=== PATIENT | male | born 1970 | race Caucasian/White ===

== ENCOUNTER 2018-03-18 14:38 | Emergency (ER) | payer BC ==
[2018-03-18 14:42] VITALS: TEMP 97.8
[2018-03-18] MEDS ORDERED: ONDANSETRON 4 MG/2 ML VIAL IVP STA (14:52)
[2018-03-18] MEDS ORDERED: SODIUM CHLORIDE 0.9% 1,000 ML IV STA (14:52)
[2018-03-18] MEDS ORDERED: HYDROmorphone 1 MG/ML 1 ML SYRINGE IVP STA (14:52)
[2018-03-18] MEDS ORDERED: KETOROLAC 30 MG/ML 1 ML VIAL IVP STA (14:52)
--- NOTE | 2018-03-18 15:00 | ED ---
General Adult HPI - General Chief complaint: Back Pain/Injury Stated complaint: back pain/vomiting Time Seen by Provider: 03/18/18 14:40 Source: patient, family, RN notes reviewed Mode of arrival: wheelchair Limitations: no limitations - History of Present Illness Initial comments: This is a 47-year-old male with past medical history significant for Crohn's disease. Patient states she's been on Humira for quite a while and has been symptom-free. Patient states he woke up today with severe right sided mid back pain. Patient states it was so bad it made him vomit. Patient denies any radiation of the pain. Patient denies any pain worsening with movement. Patient states palpating the area does not seem to make it worse. Patient denies any recent heavy lifting. Patient denies any recent injury or trauma. Patient denies any fever or chills. Patient denies any dysuria or urinary frequency or hematuria - Related Data Home Medications Medication Instructions Recorded Confirmed Acetaminophen Tab [Tylenol Tab] 1,000 mg PO Q6HR 03/18/18 03/18/18 Adalimumab [Humira Pen] 40 mg SQ Q21D 03/18/18 03/18/18 Previous Rx's Medication Instructions Recorded Hydrocodone/Acetaminophen [[place] 1 each PO Q4HR PRN #14 tab 03/18/18 5-325] Ketorolac [Toradol] 10 mg PO Q6HR #15 tab 03/18/18 Tamsulosin [Flomax] 0.4 mg PO DAILY #7 cap 03/18/18 Allergies Allergy/AdvReac Type Severity Reaction Status Date / Time No Known Allergies Allergy Verified 03/18/18 15:29 Review of Systems ROS Statement: Those systems with pertinent positive or pertinent negative responses have been documented in the HPI. ROS Other: All systems not noted in ROS Statement are negative. Past Medical History Past Medical History: Osteoarthritis (OA) Additional Past Medical History / Comment(s): crohns History of Any Multi-Drug Resistant Organisms: None Reported Past Surgical History: Orthopedic Surgery Past Psychological History: No Psychological Hx Reported Smoking Status: Never smoker Past Alcohol Use History: Occasional Past Drug Use History: None Reported General Exam - General Exam Comments Initial Comments: GENERAL: Patient is well-developed and well-nourished. Patient is nontoxic and well- hydrated and is in moderate distress. ENT: Neck is soft and supple. No significant lymphadenopathy is noted. Oropharynx is clear. Moist mucous membranes. Neck has full range of motion without eliciting any pain. EYES: The sclera were anicteric and conjunctiva were pink and moist. Extraocular movements were intact and pupils were equal round and reactive to light. Eyelids were unremarkable. PULMONARY: Unlabored respirations. Good breath sounds bilaterally. No audible rales rhonchi or wheezing was noted. CARDIOVASCULAR: There is a regular rate and rhythm without any murmurs gallops or rubs. ABDOMEN: Soft and nontender with normal bowel sounds. No palpable organomegaly was noted. There is no palpable pulsatile mass. SKIN: Skin is clear with no lesions or rashes and otherwise unremarkable. NEUROLOGIC: Patient is alert and oriented x3. Cranial nerves II through XII are grossly intact. Motor and sensory are also intact. Normal speech, volume and content. Symmetrical smile. MUSCULOSKELETAL: Normal extremities with adequate strength and full range of motion. No lower extremity swelling or edema. No calf tenderness. No reproducible back pain. LYMPHATICS: No significant lymphadenopathy is noted PSYCHIATRIC: Normal psychiatric evaluation. Normal interpersonal interactions appears functionally intact in deals appropriately with others. No signs of depression. No signs of anxiety. Limitations: no limitations Course Vital Signs 03/18/18 03/18/18 14:40 16:35 Temperature 97.8 F Pulse Rate 50 L 71 Respiratory 20 15 Rate Blood Pressure 139/92 112/59 O2 Sat by Pulse 99 98 Oximetry Medical Decision Making - Medical Decision Making Computed tomography scan shows a 3 mm distal ureter stone. Patient received Dilaudid and Zofran and Toradol in the emergency department was feeling considerably better. - Lab Data Result diagrams: 03/18/18 15:00 03/18/18 15:00 Lab Results 03/18/18 03/18/18 03/18/18 Range/Units 15:00 15:00 15:45 WBC 7.7 (3.8-10.6) k/uL RBC 5.31 (4.30-5.90) m/uL Hgb 15.6 (13.0-17.5) gm/dL Hct 48.1 (39.0-53.0) % MCV 90.5 (80.0-100.0) fL MCH 29.3 (25.0-35.0) pg MCHC 32.4 (31.0-37.0) g/dL RDW 12.5 (11.5-15.5) % Plt Count 295 (150-450) k/uL Neutrophils % 62 % Lymphocytes % 28 % Monocytes % 5 % Eosinophils % 2 % Basophils % 0 % Neutrophils # 4.8 (1.3-7.7) k/uL Lymphocytes # 2.1 (1.0-4.8) k/uL Monocytes # 0.4 (0-1.0) k/uL Eosinophils # 0.1 (0-0.7) k/uL Basophils # 0.0 (0-0.2) k/uL Sodium 140 (137-145) mmol/L Potassium 4.2 (3.5-5.1) mmol/L Chloride 104 (98-107) mmol/L Carbon Dioxide 23 (22-30) mmol/L Anion Gap 13 mmol/L BUN 15 (9-20) mg/dL Creatinine 1.03 (0.66-1.25) mg/dL Est GFR (CKD-EPI)AfAm >90 (>60 ml/min/1.73 sqM) Est GFR (CKD-EPI)NonAf 87 (>60 ml/min/1.73 sqM) Glucose 118 H (74-99) mg/dL Calcium 9.9 (8.4-10.2) mg/dL Total Bilirubin 0.8 (0.2-1.3) mg/dL AST 21 (17-59) U/L ALT 21 (21-72) U/L Alkaline Phosphatase 94 (38-126) U/L Total Protein 7.9 (6.3-8.2) g/dL Albumin 4.3 (3.5-5.0) g/dL Amylase 87 (30-110) U/L Lipase 103 (23-300) U/L Urine Color Yellow Urine Appearance Clear (Clear) Urine pH 7.0 (5.0-8.0) Ur Specific [place] 1.019 (1.001-1.035) Urine Protein Trace H (Negative) Urine Glucose (UA) Negative (Negative) Urine Ketones 2+ H (Negative) Urine Blood Moderate H (Negative) Urine Nitrite Negative (Negative) Urine Bilirubin Negative (Negative) Urine Urobilinogen <2.0 (<2.0) mg/dL Ur Leukocyte Esterase Negative (Negative) Urine RBC 45 H (0-5) /hpf Urine WBC 2 (0-5) /hpf Hyaline Casts 4 H (0-2) /lpf Urine Mucus Few H (None) /hpf Disposition Clinical Impression: Kidney stone Disposition: HOME SELF-CARE Instructions: Kidney Stones (ED) Prescriptions: Hydrocodone/Acetaminophen [[place] 5-325] 1 each PO Q4HR PRN #14 tab PRN Reason: Pain Ketorolac [Toradol] 10 mg PO Q6HR #15 tab Tamsulosin [Flomax] 0.4 mg PO DAILY #7 cap Is patient prescribed a controlled substance at d/c from ED?: Yes When asked, does pt state using other controlled substances?: No If prescribed controlled substance>3 days was MAPS reviewed?: Prescribed <3 Days If opioid is for acute pain is fill amount 7 days or less?: Yes If Rx opioid, was Start Talking consent form obtained?: Yes Referrals: Philipp Nunn MD [STAFF PHYSICIAN] - 1-2 days Time of Disposition: 17:21
[2018-03-18 15:12] LABS: Basophils % (A) 0 %; Eosinophils # (A) 0.1 k/uL (0-0.7); Eosinophils % (A) 2 %; HCT 48.1 % (39.0-53.0); HGB 15.6 gm/dL (13.0-17.5); Lymphocytes # (A) 2.1 k/uL (1.0-4.8); Lymphocytes % (A) 28 %; MCH 29.3 pg (25.0-35.0); MCHC 32.4 g/dL (31.0-37.0); MCV 90.5 fL (80.0-100.0); Mean Platelet Volume 6.8; Monocytes # (A) 0.4 k/uL (0-1.0); Monocytes % (A) 5 %; Neutrophils # (A) 4.8 k/uL (1.3-7.7); Neutrophils % (A) 62 %; Platelet Count 295 k/uL (150-450); RBC 5.31 m/uL (4.30-5.90); RDW 12.5 % (11.5-15.5); WBC 7.7 k/uL (3.8-10.6)
[2018-03-18 15:19] LABS: ALT 21 U/L (21-72); AST 21 U/L (17-59); Albumin 4.3 g/dL (3.5-5.0); Alkaline Phosphatase 94 U/L (38-126); Amylase 87 U/L (30-110); Anion Gap 13 mmol/L; Blood Urea Nitrogen 15 mg/dL (9-20); Calcium 9.9 mg/dL (8.4-10.2); Carbon Dioxide 23 mmol/L (22-30); Chloride 104 mmol/L (98-107); Glucose 118 mg/dL (74-99); Lipase 103 U/L (23-300); Potassium 4.2 mmol/L (3.5-5.1); Sodium 140 mmol/L (137-145); Total Bilirubin 0.8 mg/dL (0.2-1.3); Total Protein 7.9 g/dL (6.3-8.2)
--- NOTE | 2018-03-18 15:31 | XR ---
EXAMINATION TYPE: XR KUB DATE OF EXAM: 03/18/2018 CLINICAL DATA: 47-year-old male with right-sided lower back pain, abdominal pain, and vomiting, PHH COMPARISON: None FINDINGS: Lung bases are clear. No evidence for free intraperitoneal air. No differential air-fluid levels are identified. However, prominent air filled central small bowel lo ops with loops measuring up to 2.8 cm. Mild to moderate stool burden with some air extending distally to the rectum. No suspicious calcifications identified. IMPRESSION: 1. Prominent air filled central small bowel loops measuring up to 2.8 cm. Overall nonobstructive troy l gas pattern at this time. Consider enteritis or generalized ileus. Follow-up may be helpful. 2. No free air
[2018-03-18 15:55] LABS: Appearance,Urine Clear (Clear); Bilirubin,Urine Negative (Negative); Blood,Urine Moderate (Negative); Color,Urine Yellow; Glucose,Urine (UA) Negative (Negative); Hyaline Casts,Urine 4 /lpf (0-2); Ketones,Urine 2+ (Negative); Leukocyte Esterase,Urine Negative (Negative); Mucus,Urine Few /hpf; Nitrite,Urine Negative (Negative); Protein,Urine Trace (Negative); RBC,Urine 45 /hpf (0-5); Specific Gravity,Urine 1.019 (1.001-1.035); Urobilinogen,Urine <2.0 mg/dL (<2.0); WBC,Urine 2 /hpf (0-5)
--- NOTE | 2018-03-18 16:36 | CT ---
EXAMINATION TYPE: CT abdomen pelvis wo con DATE OF EXAM: 03/18/2018 COMPARISON: 03/19/2011 HISTORY: 47-year-old male with Lower back pain and vomiting CT DLP: 300.3 mGycm. Automated exposure control for dose reduction was used. TECHNIQUE: Contiguous axial scanning of the abdomen and pelvis without IV contrast. Coronal and sagit ashok reconstructions performed. FINDINGS: Heart normal size without pericardial effusion. Mild dependent atelectasis without pleural effusion. Noncontrast appearance of the liver, gallbladder, left kidney, spleen, pancreas, and adrenal glands s how no gross abnormality. Nonobstructive 2 mm right mid to lower pole renal calculus. There is mild right-sided pelvocaliectasi s with a 3 mm calculus in the distal right ureter just before the UVJ with mild asymmetric ureteric d ilatation. No mesenteric or retroperitoneal lymphadenopathy. Normal appendix. Mild stool burden. No pericolonic inflammatory change. Bladder nondistended. Central prostatic calcifications. No abnormal fluid collection in the pelvis or pelvic lymphadenopathy. Bones: No osseous destructive process. IMPRESSION: 1. 3 mm calculus in the distal right ureter with mild obstructive uropathy. 2. An additional 2 mm nonobstructive right renal calculus.
[2018-03-18 16:37] VITALS: BP 112/59; PULSE 71; RESP 15
== END 2018-03-18 17:35 | disposition home or self-care (01) ==
LOC: EC 14:38
DX: N20.2 Calculus of kidney with calculus of ureter (principal); M19.90 Unspecified osteoarthritis, unspecified site; Z87.19 Personal history of other diseases of the digestive system; Z79.899 Other long term (current) drug therapy
CPT/HCPCS: 36415; 80053; 82150; 83690; 85025; 81001; 74018; 74176; 99284; 96374; 96375 ×2; 96361; J2405; J1885; J1170

== ENCOUNTER → 2018-03-23 | Outpatient (CLI) | payer BC ==
[2018-03-23 10:09] LABS: HCT 45.9 % (39.0-53.0); HGB 15.2 gm/dL (13.0-17.5); MCH 29.2 pg (25.0-35.0); MCHC 33.1 g/dL (31.0-37.0); MCV 88.4 fL (80.0-100.0); Mean Platelet Volume 6.8; Platelet Count 251 k/uL (150-450); RDW 12.3 % (11.5-15.5); WBC 9.7 k/uL (3.8-10.6)
[2018-03-23 10:16] LABS: Appearance,Urine Clear (Clear); Bilirubin,Urine Negative (Negative); Blood,Urine Negative (Negative); Color,Urine Light Yellow; Glucose,Urine (UA) Negative (Negative); Ketones,Urine Negative (Negative); Leukocyte Esterase,Urine Negative (Negative); Nitrite,Urine Negative (Negative); Protein,Urine Negative (Negative); Specific Gravity,Urine 1.015 (1.001-1.035); Urobilinogen,Urine <2.0 mg/dL (<2.0)
[2018-03-23 10:21] LABS: Calcium 9.9 mg/dL (8.4-10.2); Potassium 5.8 mmol/L (3.5-5.1)
== END | disposition home or self-care (01) ==
LOC: LABPAT 09:30
PROVIDERS: ATTEND Urology
DX: Z01.812 Encounter for preprocedural laboratory examination (principal); N20.1 Calculus of ureter; R31.0 Gross hematuria; Z79.899 Other long term (current) drug therapy
CPT/HCPCS: 36415; 80048; 81003; 85027

== ENCOUNTER 2018-03-24 11:16 | Day surgery (SDC) | payer BC ==
[2018-03-23 09:51] VITALS: BMI 25.0
--- NOTE | 2018-03-23 19:35 | P.GSHP ---
History of Present Illness H&P Date: 03/23/18 47 yo male with a 3 mm distal right ureteral stone with persistent ureteral colic who comes for a right ureteroscopy with laser lithotripsy and possible stent The alternatives, risks and complications have been discussed. - Constitutional Constitutional: Denies chills, Denies fever - EENT Eyes: denies blurred vision, denies pain Ears, nose, mouth and throat: Denies headache, Denies sore throat - Cardiovascular Cardiovascular: Denies chest pain, Denies shortness of breath - Respiratory Respiratory: Denies cough, Denies 7 - Gastrointestinal Gastrointestinal: Denies abdominal pain, Denies diarrhea, Denies nausea, Denies vomiting - Genitourinary (Female) Genitourinary: Denies dysuria, Denies hematuria - Genitourinary (Male) Genitourinary: Denies dysuria, Denies hematuria - Musculoskeletal Musculoskeletal: Denies myalgias - Integumentary Integumentary: Denies pruritus, Denies rash - Neurological Neurological: Denies numbness, Denies weakness - Psychiatric Psychiatric: Denies anxiety, Denies depression - Endocrine Endocrine: Denies fatigue, Denies weight change Past Medical History Past Medical History: Osteoarthritis (OA), Rheumatoid Arthritis (RA) Additional Past Medical History / Comment(s): Crohns; Kidney stones History of Any Multi-Drug Resistant Organisms: None Reported Past Surgical History: Orthopedic Surgery Additional Past Surgical History / Comment(s): Shoulder; wrist ; bowel surgery for abscess & fistulas Past Anesthesia/Blood Transfusion Reactions: No Reported Reaction Smoking Status: Never smoker - Past Family History Father Family Medical History: Cancer Additional Family Medical History / Comment(s): Prostate CA Mother Family Medical History: Cancer Additional Family Medical History / Comment(s): Skin CA Medications and Allergies Home Medications Medication Instructions Recorded Confirmed Type Acetaminophen Tab [Tylenol Tab] 1,000 mg PO Q6HR 03/18/18 03/23/18 History Adalimumab [Humira Pen] 40 mg SQ Q21D 03/18/18 03/23/18 History Hydrocodone/Acetaminophen [[place] 1 each PO Q4HR PRN #14 tab 03/18/18 03/23/18 Rx 5-325] Tamsulosin [Flomax] 0.4 mg PO DAILY #7 cap 03/18/18 03/23/18 Rx Ibuprofen [Motrin] 800 mg PO BID PRN 03/23/18 03/23/18 History Allergies Allergy/AdvReac Type Severity Reaction Status Date / Time No Known Allergies Allergy Verified 03/23/18 09:43 Surgical - Exam - General well developed, well nourished, moderate distress - Eyes PERRL - ENT no hearing loss - Neck no masses, trachea midline - Respiratory normal expansion, normal respiratory effort - Cardiovascular Rhythm: regular - Abdomen Abdomen: soft, non tender - Genitourinary normal penis with no external lesions, testicles present - Neurologic normal coordination, normal sensation - Musculoskeletal normal gait, normal posture - Psychiatric oriented to time, oriented to person, oriented to place, speech is normal, memory intact Results - Imaging CT scan - abdomen: report reviewed, image reviewed CT scan - pelvis: report reviewed, image reviewed Assessment and Plan Assessment: Impression: Painful right ureteral stone Plan: Right ureteroscopy with laser lithotripsy and possible stent placement
[~2018-03-24 11:16] MED LIST: DEXAMETHASONE SOD PHOSPHATE 10 MG/ML 1 ML VIAL IV ONE; HYDROmorphone 0.5 MG/0.5 ML SYRINGE IVP PRN; LACTATED RINGERS 1,000 ML IV SCH; LIDOCAINE 1% 20 ML VIAL (10MG/ML) FOR IV START INTRADERMA PRN; MIDAZOLAM 2 MG/2 ML VIAL IV PRN; ONDANSETRON 4 MG/2 ML VIAL IVP ONE; SCOPOLAMINE 1.5MG/72HR PATCH TRANSDERM ONE; ceFAZolin 1,000 MG in DEXTROSE/WATER 1 50ML.BAG IVPB ONE
--- NOTE | 2018-03-24 11:40 | XR ---
EXAMINATION TYPE: XR KUB DATE OF EXAM: 03/24/2018 11:30 AM CLINICAL HISTORY: Presurgical study for right-sided kidney stone TECHNIQUE: Single supine KUB image of the abdomen is obtained. COMPARISON: Abdominal x-ray and CT abdomen and pelvis from 6 days ago. FINDINGS: The single small calculi in distal right ureter and mid pole level right kidney both measur ing 2 to [address] are not clearly identified on plain films today and March 18. Overall nonobstructive bowel gas pattern. Osseous structures are intact. IMPRESSION: As above.
[2018-03-24 11:49] VITALS: RESP 16
[2018-03-24] MEDS ORDERED: LIDOCAINE 1% 20 ML VIAL (10MG/ML) FOR IV START INTRADERMA ONE (12:02)
[2018-03-24] MEDS ORDERED: ePHEDrine SULFATE/0.9% NACL/PF 50 MG/5 ML SYRINGE IV ONE (12:37)
[2018-03-24] MEDS ORDERED: MIDAZOLAM 2 MG/2 ML VIAL ONE (12:37)
[2018-03-24] MEDS ORDERED: fentaNYL (PF) 50 MCG/ML 2 ML AMP ONE (12:37)
[2018-03-24] MEDS ORDERED: PROPOFOL 10 MG/ML 20 ML VIAL IV ONE (12:37)
[2018-03-24] MEDS ORDERED: LIDOCAINE 1% INJ 10MG/ML (20 ML MDV) ONE (12:37)
[2018-03-24] MEDS ORDERED: IOHEXOL 350 MG/ML 50 ML in EMPTY BAG 1 BAG IRRIGATION ONE (13:05)
--- NOTE | 2018-03-24 13:21 | P.OP ---
Date of Procedure: 03/24/18 Preoperative Diagnosis: Right ureteral calculus Postoperative Diagnosis: Right ureteral calculus Procedure(s) Performed: Cystoscopy, right retrograde pyelogram, right ureteroscopy with stone basket Anesthesia: OG Surgeon: Darrell Lynn Estimated Blood Loss (ml): 0 Pathology: other (Stone) Condition: stable Disposition: PACU Indications for Procedure: The patient is 47. For several days he has been trying to pass a 3 mm right ureteral stone. It is causing persistent colic and he cannot function or work. He wishes it removed. Description of Procedure: The patient is brought to the operating suite. He is given a general anesthesia on the operating table. He's placed lithotomy position with a sterile prep and drape. Cystoscopy of the Foroblique lens and 22-[place] sheath is performed. The anterior urethra is normal. The prostatic urethra was not obstructing. The ureteral orifices are normal. The bladder mucosa was unremarkable. The right ureteral orifice is quite small. Within a cone-tipped catheter is dilated and a retrograde pyelogram was performed identifying a 3 mm stone is ureter enters the bladder. I then pass a semirigid scope up to the stone. The scope dilates the edematous area where the stone is lodged. With a 1.9-Honduran stone basket the stone was grasped and removed. I reinspected the ureter and there is not enough edema to leave a stent. The bladder strain the cystoscope was removed the patient's awakened and returned recovery room good condition. He'll be discharged home upon recovery and follow in the office in one week.
[2018-03-24 13:30] VITALS: TEMP 97.4
[2018-03-24] MEDS ORDERED: HYDROcodone/APAP 5-325MG 1 EACH TAB PO ONE (14:28)
[2018-03-24 14:50] VITALS: BP 132/85; PULSE 80
--- NOTE | 2018-03-24 15:47 | FL ---
Fluoroscopy HISTORY: Ureter stone 27 seconds fluoroscopy time supplied to the referring clinician. 1 intraoperative C-arm images docum ent the procedure. See dictated report from urology.
== END 2018-03-24 15:18 | disposition home or self-care (01) ==
LOC: OR 11:16
PROVIDERS: ATTEND Urology
DX: N20.1 Calculus of ureter (principal); M19.90 Unspecified osteoarthritis, unspecified site; M06.9 Rheumatoid arthritis, unspecified; K50.90 Crohn's disease, unspecified, without complications; Z87.442 Personal history of urinary calculi; Z79.899 Other long term (current) drug therapy
CPT/HCPCS: 93005; 84132; 74420; 74018; 52352; C1758; C1769; J2250; J1100; J2405; J2001; J3010; J0690; J2704; Q9967

== ENCOUNTER → 2018-07-20 | Outpatient (CLI) | payer BC ==
[2018-07-20 07:43] LABS: Ionized Calcium 5.2 mg/dL (4.5-5.3)
[2018-07-20 11:15] LABS: Albumin 4.4 g/dL (3.80-4.90); Albumin/Globulin Ratio 1.76 (1.20-2.10); Calcium 9.5 mg/dL (8.7-10.3); Globulin 2.5 g/dL (1.6-3.3); Potassium 4.5 mmol/L (3.5-5.5); Total Bilirubin 0.3 mg/dL (0.3-1.2); Total Protein 6.9 g/dL (6.2-8.2)
== END | disposition home or self-care (01) ==
LOC: LABWHC1 06:54
PROVIDERS: ATTEND Internal Medicine
DX: N20.0 Calculus of kidney (principal)
CPT/HCPCS: 36415; 80053; 82330

== ENCOUNTER → 2020-02-23 | Outpatient (CLI) | payer BC ==
[2020-02-23 10:03] LABS: Basophils % (A) 1 %; Eosinophils # (A) 0.2 k/uL (0-0.7); Eosinophils % (A) 2 %; HCT 53.4 % (39.0-53.0); HGB 17.6 gm/dL (13.0-17.5); Lymphocytes # (A) 2.6 k/uL (1.0-4.8); Lymphocytes % (A) 39 %; MCH 29.9 pg (25.0-35.0); MCV 90.5 fL (80.0-100.0); Mean Platelet Volume 7.2; Monocytes # (A) 0.5 k/uL (0-1.0); Monocytes % (A) 8 %; Neutrophils # (A) 3.2 k/uL (1.3-7.7); Neutrophils % (A) 48 %; Platelet Count 289 k/uL (150-450); RBC 5.89 m/uL (4.30-5.90); RDW 12.4 % (11.5-15.5); WBC 6.7 k/uL (3.8-10.6)
[2020-02-23 16:49] LABS: Erythrocyte Sedimentation Rate 4 mm/Hr (0-15)
[2020-02-23 16:56] LABS: Albumin 4.5 g/dL (3.80-4.90); Albumin/Globulin Ratio 1.36 (1.60-3.17); Anion Gap 11.7 mmol/L (4.00-12.00); Carbon Dioxide 23.3 mmol/L (21.6-31.8); Chol/HDL Ratio 4.54; Globulin 3.3 g/dL (1.6-3.3); LDL Cholesterol,Calculated 139.4 mg/dL (0.0-131.0); Potassium 4.6 mmol/L (3.5-5.5); Total Bilirubin 0.7 mg/dL (0.2-1.2); Total Protein 7.8 g/dL (6.2-8.2); VLDL Calculation 37.6 mg/dL (5.00-40.00)
[2020-02-23 17:05] LABS: T4, Free (Free Thyroxine) 1.1 ng/dL (0.80-1.80)
== END | disposition home or self-care (01) ==
LOC: LABWHC1 08:49
PROVIDERS: ATTEND Internal Medicine
DX: Z00.00 Encounter for general adult medical examination without abnormal findings (principal); K50.90 Crohn's disease, unspecified, without complications
CPT/HCPCS: 36415; 80053; 80061; 84439; 84443; 85025; 85652

== ENCOUNTER → 2021-03-07 | Outpatient (CLI) | payer BC ==
--- NOTE | 2021-03-07 10:01 | XR ---
EXAMINATION TYPE: XR lumbosacral spine min 4V DATE OF EXAM: 03/07/2021 CLINICAL HISTORY: Low back pain TECHNIQUE: Frontal, lateral, and oblique images of the lumbar spine are obtained. COMPARISON: CT abdomen and pelvis March 18, 2018 FINDINGS: There are 5 lumbar type vertebral bodies redemonstrated. The lumbar spine shows stable an d satisfactory alignment without evidence of acute fracture or dislocation. Vertebral body heights an d disk space heights remain within normal limits. Some facet arthropathy lower lumbar spine is redemo nstrated. Mild multilevel anterior spurring is redemonstrated. The oblique images appear within norm al limits. Rounded 7 mm density between right 11th and 12th ribs could reflect new gallstone. IMPRESSION: As above.
--- NOTE | 2021-03-07 10:03 | XR ---
EXAMINATION TYPE: XR sacroiliac joint comp BILAT DATE OF EXAM: 03/07/2021 COMPARISON: CT abdomen and pelvis March 18, 2018 HISTORY: Pain and sacroiliitis. TECHNIQUE: 2 views of the bilateral sacroiliac joints obtained on 3 images. FINDINGS: Sacroiliac joints remain symmetric and within normal limits. No suspicious asymmetric narro wing, spurring, or sclerosis is identified bilaterally. Overlying soft tissue is unremarkable. IMPRESSION: As above. Unremarkable study.
== END | disposition home or self-care (01) ==
LOC: RADXRMAIN 09:01
PROVIDERS: ATTEND Pediatrics
DX: M47.816 Spondylosis without myelopathy or radiculopathy, lumbar region (principal); M53.3 Sacrococcygeal disorders, not elsewhere classified
CPT/HCPCS: 72110; 72202

== ENCOUNTER 2024-04-29 05:55 | Emergency (ER) | payer BC ==
[2024-04-29 06:10] VITALS: RESP 20; TEMP 98.1
--- NOTE | 2024-04-29 06:26 | ED ---
Back Pain HPI - General Chief Complaint: Back Pain/Injury Stated Complaint: Kidney Stone Time Seen by Provider: 04/29/24 06:24 Source: patient, family, RN notes reviewed Limitations: no limitations - History of Present Illness Initial Comments: 53-year-old male presenting to the ER with a chief complaint of left flank pain. Patient reports a history of kidney stones and states this pain feels similar. He states around 10 or 11 last night he started to experience a dull left flank pain. Pain does not radiate. He states around 3 AM pain progressed to be severe in nature. Admits to dry heaves. He took [id number] ibuprofen and Aleve with some relief. He reports a discomfort with urination but denies any dysuria or hematuria. Denies any fevers or chills. Denies any constipation/diarrhea. No other complaints. - Related Data Home Medications Medication Instructions Recorded Confirmed Acetaminophen Tab [Tylenol Tab] 1,000 mg PO Q6HR 03/18/18 03/24/18 Adalimumab [Humira Pen] 40 mg SQ Q21D 03/18/18 03/24/18 Ibuprofen [Motrin] 800 mg PO BID PRN 03/23/18 03/24/18 Previous Rx's Medication Instructions Recorded Hydrocodone/Acetaminophen [[place] 1 each PO Q4HR PRN #14 tab 03/18/18 5-325] Tamsulosin [Flomax] 0.4 mg PO DAILY #7 cap 03/18/18 Acetaminophen-Codeine 300-30mg 1 tab PO Q4H PRN #10 tablet 04/29/24 [Tylenol #3] Ondansetron Odt [Zofran Odt] 4 mg PO Q8HR PRN #10 tab 04/29/24 Tamsulosin [Flomax] 0.4 mg PO DAILY #7 cap 04/29/24 Allergies Allergy/AdvReac Type Severity Reaction Status Date / Time No Known Allergies Allergy Verified 03/24/18 11:49 Review of Systems ROS Statement: Those systems with pertinent positive or pertinent negative responses have been documented in the HPI. ROS Other: All systems not noted in ROS Statement are negative. Past Medical History Past Medical History: Osteoarthritis (OA) Additional Past Medical History / Comment(s): crohns History of Any Multi-Drug Resistant Organisms: None Reported Past Surgical History: Orthopedic Surgery Past Psychological History: No Psychological Hx Reported Past Alcohol Use History: Occasional Past Drug Use History: None Reported General Exam Limitations: no limitations General appearance: alert, in no apparent distress Respiratory exam: Present: normal lung sounds bilaterally. Absent: respiratory distress, wheezes, rales, rhonchi, stridor Cardiovascular Exam: Present: regular rate, normal rhythm, normal heart sounds. Absent: systolic murmur, diastolic murmur, rubs, gallop, clicks GI/Abdominal exam: Present: soft, normal bowel sounds. Absent: distended, t enderness, guarding, rebound, rigid Extremities exam: Present: normal inspection, full ROM, normal capillary refill. Absent: tenderness, pedal edema, joint swelling, calf tenderness Back exam: Present: normal inspection Neurological exam: Present: alert, oriented X3, CN II-XII intact Skin exam: Present: warm, dry, intact, normal color. Absent: rash Course Vital Signs 04/29/24 04/29/24 04/29/24 06:07 07:12 08:48 Temperature 98.1 F Pulse Rate 73 71 72 Respiratory 20 20 20 Rate Blood Pressure 155/100 134/90 119/96 O2 Sat by Pulse 99 98 97 Oximetry 04/29/24 09:54 Temperature Pulse Rate 77 Respiratory 20 Rate Blood Pressure 130/68 O2 Sat by Pulse 98 Oximetry Medical Decision Making - Medical Decision Making Was pt. sent in by a medical professional or institution ([facility], [employer], urgent care, hospital, or [facility]...) When possible be specific @ -No Did you speak to anyone other than the patient for history (EMS, parent, family, police, friend...)? What history was obtained from this source @ -, at bedside, aiding in HPI and past medical history. Did you review nursing and triage notes (agree or disagree)? Why? @ -I reviewed and agree with nursing and triage notes Were old charts reviewed (outside hosp., previous admission, EMS record, old EKG, old radiological studies, urgent care reports/EKG's, [facility] records)? Report findings @ -No old charts were reviewed Differential Diagnosis (chest pain, altered mental status, abdominal pain women, abdominal pain men, vaginal bleeding, weakness, fever, dyspnea, syncope, h eadache, dizziness, GI bleed, back pain, seizure, CVA, palpatations, mental health, musculoskeletal)? @ -Differential Back Pain:Strain, zoster, cauda equina syndrome, epidural abscess, vertebral osteomyelitis, discitis, fracture, subluxation, disc herniation, DJD, spinal stenosis, dissection, AAA, pancreatitis, peptic ulcer disease, pyelonephritis, kidney stone, this is not meant to be an all-inclusive list. EKG interpreted by me (3pts min.). @ -None done X-rays interpreted by me (1pt min.). @ -[None done CT interpreted by me (1pt min.). @ -CT abdomen pelvis showing a 2 mm distal left ureteral calculus causing mild left-sided hydronephrosis. Calculus approximately 2 cm from the level of the left UVJ. U/S interpreted by me (1pt. min.). @ -None done What testing was considered but not performed or refused? (CT, X-rays, U/S, labs)? Why? @ -None What meds were considered but not given or refused? Why? @ -None Did you discuss the management of the patient with other professionals ( professionals i.e. , PA, [employer]ER, lab, RT, psych nurse, psychiatric social worker, information technology security analyst, teacher, bomb squad officer, employment evaluator/case manager)? Give summary @ -No Was smoking cessation discussed for >3mins.? @ -No Was critical care preformed (if so, how long)? @ -No Were there social determinants of health that impacted care today? How? (Homelessness, low income, unemployed, alcoholism, drug addiction, transportation, low edu. Level, literacy, decrease access to med. care, [facility], rehab)? @ -No Was there de-escalation of care discussed even if they declined (Discuss DNR or withdrawal of care, Hospice)? DNR status @ -No What co-morbidities impacted this encounter? (DM, HTN, Smoking, COPD, CAD, Cancer, CVA, ARF, Chemo, Hep., AIDS, mental health diagnosis, sleep apnea, morbid obesity)? @ -None Was patient admitted / discharged? Hospital course, mention meds given and route, prescriptions, significant lab abnormalities, going to OR and other pertinent info. @ -Discharge. 53-year-old male presenting to the ER with a chief complaint of left flank pain. History and physical exam completed. Patient is hypertensive upon arrival this is believed to be due from pain. Vitals are otherwise stable. Patient in no signs of acute distress but does appear uncomfortable on exam. No left CVA tenderness. No focal abdominal tenderness with normal bowel sounds no rebound or guarding. Laboratory studies showing a WBC of 14.1 with a left shift, likely reactive from vomiting. CMP unremarkable. Urinalysis hemorrhagic with moderate blood and 36 RBCs which is likely related to calculus. CT abdomen pelvis showing a 2 mm distal left ureteral calculus resulting in mild left sided hydronephrosis. Calculus approximately 2 cm from the level of the UVJ. Patient received symptomatic control in the ER, with improvement. Upon reevaluation, patient resting comfortably no signs of acute distress. Results discussed with patient, all questions answered. Patient stable for discharge at this time. Flomax, Zofran, Tylenol 3 prescribed. Advised patient to also take burb-pea-[id number] ibuprofen for pain control. Patient discharged with a urine strainer. I advised close follow-up with urology, referral given. Strict return parameters discussed. Patient discharged in stable condition with follow-up to PCP and urology. Patient verbally expressed understanding and agreement with care plan. Case discussed with ED attending, Dr. Meraz. Undiagnosed new problem with uncertain prognosis? @ -No Drug Therapy requiring intensive monitoring for toxicity (Heparin, Nitro, Insulin, Cardizem)? @ -No Were any procedures done? @ -No Diagnosis/symptom? @ -Hydronephrosis caused by obstructing calculus Acute, or Chronic, or Acute on Chronic? @ -Acute Uncomplicated (without systemic symptoms) or Complicated (systemic symptoms)? @ -Uncomplicated Side effects of treatment? @ -No Exacerbation, Progression, or Severe Exacerbation? @ -No Poses a threat to life or bodily function? How? (Chest pain, [place], [place], pneumonia, PE, COPD, DKA, ARF, appy, cholecystitis, CVA, Diverticulitis, Homicidal, Suicidal, threat to staff... and all critical care pts) @ -No - Lab Data Result diagrams: 04/29/24 06:42 04/29/24 08:16 Lab Results 04/29/24 04/29/24 04/29/24 Range/Units 06:23 06:42 06:42 WBC 14.1 H (3.8-10.6) k/uL RBC 5.49 (4.30-5.90) m/uL Hgb 16.4 (13.0-17.5) gm/dL Hct 50.5 (39.0-53.0) % MCV 92.0 (80.0-100.0) fL MCH 29.9 (25.0-35.0) pg MCHC 32.5 (31.0-37.0) g/dL RDW 12.3 (11.5-15.5) % Plt Count 268 (150-450) k/uL MPV 7.8 Neutrophils % 77 % Lymphocytes % 17 % Monocytes % 4 % Eosinophils % 1 % Basophils % 0 % Neutrophils # 10.8 H (1.3-7.7) k/uL Lymphocytes # 2.4 (1.0-4.8) k/uL Monocytes # 0.5 (0-1.0) k/uL Eosinophils # 0.1 (0-0.7) k/uL Basophils # 0.1 (0-0.2) k/uL Sodium (137-145) mmol/L Potassium (3.5-5.1) mmol/L Chloride (98-107) mmol/L Carbon Dioxide (22-30) mmol/L Anion Gap mmol/L BUN (9-20) mg/dL Creatinine (0.66-1.25) mg/dL Est GFR (CKD-EPI)AfAm (>60 ml/min/1.73 sqM) Est GFR (CKD-EPI)NonAf (>60 ml/min/1.73 sqM) Glucose (74-99) mg/dL Plasma Lactic Acid Mono 1.7 (0.7-2.0) mmol/L Calcium (8.4-10.2) mg/dL Total Bilirubin (0.2-1.3) mg/dL AST (17-59) U/L ALT (4-49) U/L Alkaline Phosphatase (38-126) U/L Total Protein (6.3-8.2) g/dL Albumin (3.5-5.0) g/dL Urine Color Yellow Urine Appearance Clear (Clear) Urine pH 5.5 (5.0-8.0) Ur Specific [place] 1.031 (1.001-1.035) Urine Protein Trace H (Negative) Urine Glucose (UA) Negative (Negative) Urine Ketones Negative (Negative) Urine Blood Moderate H (Negative) Urine Nitrite Negative (Negative) Urine Bilirubin Negative (Negative) Urine Urobilinogen <2.0 (<2.0) mg/dL Ur Leukocyte Esterase Negative (Negative) Urine RBC 36 H (0-5) /hpf Urine WBC <1 (0-5) /hpf Ur Squamous Epith Cells <1 (0-4) /hpf Urine Mucus Moderate H (None) /hpf 04/29/24 Range/Units 08:16 WBC (3.8-10.6) k/uL RBC (4.30-5.90) m/uL Hgb (13.0-17.5) gm/dL Hct (39.0-53.0) % MCV (80.0-100.0) fL MCH (25.0-35.0) pg MCHC (31.0-37.0) g/dL RDW (11.5-15.5) % Plt Count (150-450) k/uL MPV Neutrophils % % Lymphocytes % % Monocytes % % Eosinophils % % Basophils % % Neutrophils # (1.3-7.7) k/uL Lymphocytes # (1.0-4.8) k/uL Monocytes # (0-1.0) k/uL Eosinophils # (0-0.7) k/uL Basophils # (0-0.2) k/uL Sodium 141 (137-145) mmol/L Potassium 4.5 (3.5-5.1) mmol/L Chloride 107 (98-107) mmol/L Carbon Dioxide 25 (22-30) mmol/L Anion Gap 9 mmol/L BUN 18 (9-20) mg/dL Creatinine 1.23 (0.66-1.25) mg/dL Est GFR (CKD-EPI)AfAm 77 (>60 ml/min/1.73 sqM) Est GFR (CKD-EPI)NonAf 67 (>60 ml/min/1.73 sqM) Glucose 109 H (74-99) mg/dL Plasma Lactic Acid Mono (0.7-2.0) mmol/L Calcium 9.3 (8.4-10.2) mg/dL Total Bilirubin 0.5 (0.2-1.3) mg/dL AST 25 (17-59) U/L ALT 19 (4-49) U/L Alkaline Phosphatase 112 (38-126) U/L Total Protein 7.3 (6.3-8.2) g/dL Albumin 3.9 (3.5-5.0) g/dL Urine Color Urine Appearance (Clear) Urine pH (5.0-8.0) Ur Specific [place] (1.001-1.035) Urine Protein (Negative) Urine Glucose (UA) (Negative) Urine Ketones (Negative) Urine Blood (Negative) Urine Nitrite (Negative) Urine Bilirubin (Negative) Urine Urobilinogen (<2.0) mg/dL Ur Leukocyte Esterase (Negative) Urine RBC (0-5) /hpf Urine WBC (0-5) /hpf Ur Squamous Epith Cells (0-4) /hpf Urine Mucus (None) /hpf - Radiology Data Radiology results: report reviewed, image reviewed Disposition Clinical Impression: Kidney stone Disposition: HOME SELF-CARE Condition: Stable Instructions (If sedation given, give patient instructions): Kidney Stones (ED), How to Strain Your Urine (ED) Additional Instructions: Follow-up with urology. Take medications as prescribed. Return to the ER for any new or worsening concerns. Prescriptions: Tamsulosin [Flomax] 0.4 mg PO DAILY #7 cap Acetaminophen-Codeine 300-30mg [Tylenol #3] 1 tab PO Q4H PRN #10 tablet PRN Reason: pain Ondansetron Odt [Zofran Odt] 4 mg PO Q8HR PRN #10 tab PRN Reason: Nausea Is patient prescribed a controlled substance at d/c from ED?: Yes When asked, does pt state using other controlled substances?: No If prescribed controlled substance>3 days was MAPS reviewed?: Prescribed <3 Days If opioid is for acute pain is fill amount 7 days or less?: Yes If Rx opioid, was Start Talking consent form obtained?: Yes Referrals: Mina Marti MD [Primary Care Provider] - 1-2 days Philipp Nunn MD [STAFF PHYSICIAN] - 1-2 days Time of Disposition: 09:35
[2024-04-29] MEDS: ONDANSETRON 4 MG/2 ML VIAL IVP STA (06:41)
[2024-04-29] MEDS: HYDROmorphone 1 MG/ML 1 ML SYRINGE IVP STA ×2 (06:41→08:52)
[2024-04-29] MEDS: SODIUM CHLORIDE 0.9% 1,000 ML IV STA (06:42)
[2024-04-29 07:29] LABS: Basophils # (A) 0.1 k/uL (0-0.2); Basophils % (A) 0 %; Eosinophils # (A) 0.1 k/uL (0-0.7); Eosinophils % (A) 1 %; HCT 50.5 % (39.0-53.0); HGB 16.4 gm/dL (13.0-17.5); Lymphocytes # (A) 2.4 k/uL (1.0-4.8); Lymphocytes % (A) 17 %; MCH 29.9 pg (25.0-35.0); MCHC 32.5 g/dL (31.0-37.0); Mean Platelet Volume 7.8; Monocytes # (A) 0.5 k/uL (0-1.0); Monocytes % (A) 4 %; Neutrophils # (A) 10.8 k/uL (1.3-7.7); Neutrophils % (A) 77 %; Platelet Count 268 k/uL (150-450); RBC 5.49 m/uL (4.30-5.90); RDW 12.3 % (11.5-15.5); WBC 14.1 k/uL (3.8-10.6)
[2024-04-29 08:14] LABS: Appearance,Urine Clear (Clear); Bilirubin,Urine Negative (Negative); Blood,Urine Moderate (Negative); Color,Urine Yellow; Glucose,Urine (UA) Negative (Negative); Ketones,Urine Negative (Negative); Leukocyte Esterase,Urine Negative (Negative); Mucus,Urine Moderate /hpf; Nitrite,Urine Negative (Negative); PH, Urine 5.5 (5.0-8.0); Protein,Urine Trace (Negative); RBC,Urine 36 /hpf (0-5); Specific Gravity,Urine 1.031 (1.001-1.035); Squamous Epithelial Cell,Urine <1 /hpf (0-4); Urobilinogen,Urine <2.0 mg/dL (<2.0); WBC,Urine <1 /hpf (0-5)
[2024-04-29 08:58] LABS: ALT 19 U/L (4-49); AST 25 U/L (17-59); African American GFR (CKD) 77 (>60 ml/min/1.73 sqM); Albumin 3.9 g/dL (3.5-5.0); Alkaline Phosphatase 112 U/L (38-126); Anion Gap 9 mmol/L; Blood Urea Nitrogen 18 mg/dL (9-20); Calcium 9.3 mg/dL (8.4-10.2); Carbon Dioxide 25 mmol/L (22-30); Chloride 107 mmol/L (98-107); Glucose 109 mg/dL (74-99); Non-African American GFR(CKD) 67 (>60 ml/min/1.73 sqM); Potassium 4.5 mmol/L (3.5-5.1); Sodium 141 mmol/L (137-145); Total Bilirubin 0.5 mg/dL (0.2-1.3); Total Protein 7.3 g/dL (6.3-8.2)
--- NOTE | 2024-04-29 09:27 | CT ---
EXAMINATION TYPE: CT abdomen pelvis wo con DATE OF EXAM: 04/29/2024 COMPARISON: 03/18/2018 HISTORY: Left flank pain, history of stones CT DLP: 479.7 mGycm Examination of the solid and hollow viscera is limited given the lack of contrast. FINDINGS: LUNG BASES: No evidence for nodule. No evidence for infiltrate. LIVER/GB: Single calcified gallstone noted. No space-occupying hepatic lesion. PANCREAS: No pancreatic mass identified. No inflammatory process seen. SPLEEN: No evidence for splenomegaly. No intrasplenic lesions seen. ADRENALS: No adrenal nodules identified. No evidence for thickening. KIDNEYS: No evidence for renal mass. 2 mm distal left ureteral calculus resulting in mild left-sided hydronephrosis. Calculus is approximately 2 cm from the level of the left UVJ. No additional calculi seen. BOWEL: Appendix has a normal appearance. No evidence of bowel obstruction. No inflammatory process. Lymph nodes: No evidence for adenopathy greater than 1 cm. Abdominal aorta: Atheromatous changes seen. No evidence for aneurysm. Genital organs: No significant abnormality. Other: No significant abnormality. IMPRESSION: 2 mm distal left ureteral calculus resulting in mild left-sided hydronephrosis. Calculus is approxima tely 2 cm from the level of the left UVJ. [facility], , 04/29/2024 7:51 AM
[2024-04-29] MEDS: ACET/COD 300 MG/30 MG STARTER PACK 6 TAB BTL PO STA (09:40)
[2024-04-29 09:55] VITALS: BP 130/68; PULSE 77
== END 2024-04-29 09:55 | disposition home or self-care (01) ==
LOC: EC 05:55
DX: N13.2 Hydronephrosis with renal and ureteral calculous obstruction (principal)
CPT/HCPCS: 36415; 74176; 80053; 81001; 83605; 85025; 96361; 96374; 96375; 96376; 99284